=== PATIENT | male | born 2000 | race Caucasian/White ===

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

== ENCOUNTER 2023-01-12 21:41 | Emergency (ER) | payer BC ==
[2023-01-12] MEDS ORDERED: Lidocaine 1% 5 ML VIAL INJECT ONE ×2 (22:17→22:41)
[2023-01-12] MEDS ORDERED: Bacitracin Oint 1 GM U/D Packet TOP ONE ×2 (22:17→23:38)
[2023-01-12] MEDS ORDERED: Diphtheria,Pertussis(Acell),Tetanus Vaccine 0.5 ML Syringe IM ONE (22:41)
[2023-01-12] MEDS ORDERED: Bacitracin Oint 1 GM U/D Packet ONE (23:33)
== END 2023-01-13 00:30 | disposition home or self-care (01) ==
LOC: JP.ED 21:41
DX: S61.011A Laceration without foreign body of right thumb without damage to nail, initial encounter (principal); S61.210A Laceration without foreign body of right index finger without damage to nail, initial encounter; S61.212A Laceration without foreign body of right middle finger without damage to nail, initial encounter; Z23 Encounter for immunization; W25.XXXA Contact with sharp glass, initial encounter
CPT/HCPCS: 12005; 73130-26-RT; 73130-RT; 90471; 90715; 99282; 99283-25